=== PATIENT | female | born 1995 | race Two or more races ===

== ENCOUNTER 2024-02-18 20:30 | Observation (INO) | payer OTHER ==
[~2024-02-18] VITALS: Ht 150 cm; Wt 54.4 kg
[2024-02-18] MEDS ORDERED: PRETAB PO (21:05)
[2024-02-18 21:15] VITALS: BP 92/50; PULSE 89; RESP 16; TEMP 98.3
== END 2024-02-19 00:40 | disposition left against medical advice (07) ==
LOC: EDBD 20:30 → MLD 20:30
PROVIDERS: ADMIT Obstetrics & Gynecology; ATTEND Obstetrics & Gynecology
DX: O99.891 Other specified diseases and conditions complicating pregnancy (principal); M54.9 Dorsalgia, unspecified; Z3A.25 25 weeks gestation of pregnancy
CPT/HCPCS: 36415; 76805; 85384; 86886; 86900; 86901; G0378